=== PATIENT | male | born 1945 | race Caucasian/White ===

== ENCOUNTER 2017-01-12 09:00 | Outpatient (CLI) | payer MEDICARE ==
[2017-01-12] MEDS ORDERED: IOPAMIDOL-300 100 ML VIAL IVP ONE (10:28)
[2017-01-12] MEDS ORDERED: IOPAMIDOL-300 50 ML VIAL PO ONE (10:28)
== END 2017-01-12 09:01 | disposition home or self-care (01) ==
DX: K57.30 Diverticulosis of large intestine without perforation or abscess without bleeding (principal)
CPT/HCPCS: 74177; Q9967

== ENCOUNTER 2017-09-19 10:54 | Outpatient (CLI) | payer MEDICARE ==
--- NOTE | 2017-09-20 15:31 | XRAY Report ---
CHEST, TWO VIEWS: 09/19/2017 HISTORY: Cough. COMPARISON: 08/29/2012 Borderline cardiomegaly is present. Carotid artery calcification noted particularly on the right. Degenerative changes, left greater than right shoulders. Clear lungs. No pleural effusion or pneumothorax. Multilevel degenerative change in the spine. IMPRESSION: BORDERLINE CARDIOMEGALY. CLEAR LUNGS. NO ACUTE FINDINGS. JOB #: [id number] EXT JOB #: [id number] [facility]
== END 2017-09-19 10:55 | disposition home or self-care (01) ==
LOC: DI 10:54
PROVIDERS: ATTEND Nurse Practitioner Family
DX: R05 Cough (principal); I51.7 Cardiomegaly
CPT/HCPCS: 71020

== ENCOUNTER 2019-03-14 10:40 | Day surgery (SDC) | payer MEDICARE ==
[~2019-03-14 10:40] MED LIST: BRIMONIDINE 0.2% OPHTH DROPS 5 ML ONE; BSS/LIDOCAINE/EPINEPHRINE 1 ML SYRINGE ONE; CYCLOPENTOLATE 1% OPHTH DROPS 2 ML ONE; KETOROLAC 0.45% OPHTH DROPS ONE; PHENYLEPHRINE 2.5% OPHTH 2 ML DROPS ONE; PROPARACAINE 0.5% OPHTH DROPS 15 ML ONE; TIMOLOL 0.5% OPHTH DROPS ONE; TRIAMCIN/MOXIFLOX OPHTHALMIC 0.6 ML VIAL IO ONE; VANCOMYCIN OPHTHALMI 8MG/0.8ML 8 MG/0.8 ML SYRINGE IO ONE
[2019-03-14] MEDS ORDERED: LACTATED RINGERS 500 ML IV ONE (11:08)
[2019-03-14] MEDS ORDERED: CYCLOPENTOLATE 1% OPHTH DROPS 2 ML RIGHTEYE ONE (11:15)
[2019-03-14] MEDS ORDERED: KETOROLAC 0.45% OPHTH DROPS RIGHTEYE ONE (11:15)
[2019-03-14] MEDS ORDERED: PHENYLEPHRINE 2.5% OPHTH 2 ML DROPS RIGHTEYE ONE (11:15)
[2019-03-14] MEDS ORDERED: PROPARACAINE 0.5% OPHTH DROPS 15 ML RIGHTEYE ONE (11:15)
--- NOTE | 2019-03-14 11:47 | ANESTHESIA ---
Pre-Anesthesia VS, & Labs - NPO >8 hours <Glenis Rust - Last Filed: 03/14/19 11:42> - NPO >8 hours <Jocelyn Lyons - Last Filed: 03/14/19 11:50> - Diagnosis senile combined cataract right side (Glenis Rust) - Procedure cataract extraction with intraocular lens implant (Glenis Rust) Vital Signs: Temp Pulse Resp BP Pulse Ox 36.7 C 52 L 18 142/79 H 93 03/14/19 11:11 03/14/19 11:11 03/14/19 11:11 03/14/19 11:11 03/14/19 11:11 Height 5 ft 8 in Weight (kg) 101 kg Body Mass Index 33.0 Home Medications and Allergies <Glenis Rust - Last Filed: 03/14/19 11:42> <Jocelyn Lyons - Last Filed: 03/14/19 11:50> Losartan/Hydrochlorothiazide [Hyzaar 50-12.5 Tablet] 1 each PO DAILY 03/21/13 Omeprazole 20 mg PO BID 03/21/13 Cyanocobalamin/Folic Acid [Vitamin T23-Rvjmn Acid Tablet] 1 tab ORAL DAILY 07/09/14 Multivitamin [Multi-Day Vitamins] 1 tab ORAL DAILY 07/09/14 Allergies/Adverse Reactions: Allergies Allergy/AdvReac Type Severity Reaction Status Date / Time Penicillins Allergy Mild Hives Verified 03/21/13 13:18 Anes History & Medical History - Medical History Cardiovascular: reports: Hypertension, High cholesterol Pulmonary: reports: Shortness of breath, Other Gastrointestinal: reports: GERD, Ulcerative colitis, Other Urinary: reports: None Musculoskeletal: reports: Osteoarthritis, Chronic back pain, Other Endocrine/Autoimmune: reports: None Skin: reports: None - Surgical History General: Bowel surgery, Colonoscopy <Glenis Rust - Last Filed: 03/14/19 11:42> - Anesthetic History Anesthesia Complications: reports: No previous complications - Medical History Cardiovascular: reports: Hypertension, High cholesterol Pulmonary: reports: Shortness of breath, Other Gastrointestinal: reports: GERD Neuro: reports: None Blood Disorders: reports: None Smoking Status: Current every day smoker (1pk/day for 50 years) Psychosocial: reports: No issues indicated <Jocelyn Lyons - Last Filed: 03/14/19 11:50> Exam General: Alert, Oriented x3, Cooperative, No acute distress Dental: Partials Upper, Partials Lower Mouth Openin Fingerbreadth Neck Mobility: Normal Mallampati classification: II Thyromental Distance: 4-6 cm Respiratory: Lungs clear, Normal breath sounds, No respiratory distress, No accessory muscle use Cardiovascular: Regular rate, Normal S1, Normal S2, No murmurs Mental/Cognitive Status: Alert/Oriented X3, Normal for patient <Jocelyn Lyons - Last Filed: 03/14/19 11:50> Plan Anesthesia Type: MAC Consent for Procedure(s) Verified and Reviewed: Yes Code Status: Attempt Resuscitation ASA classification: 2-Mild systemic disease Is this case an emergency?: No <Jocelyn Lyons - Last Filed: 03/14/19 11:50>
[2019-03-14] MEDS ORDERED: MIDAZOLAM 2 MG/2 ML VIAL IVP ONE (12:03)
[2019-03-14] MEDS ORDERED: fentaNYL 100 MCG/2 ML VIAL IVP ONE (12:03)
[2019-03-14] MEDS ORDERED: BRIMONIDINE 0.2% OPHTH DROPS 5 ML OPTH ONE (12:07)
[2019-03-14] MEDS ORDERED: TRIAMCIN/MOXIFLOX OPHTHALMIC 0.6 ML VIAL IO ONE (12:08)
[2019-03-14] MEDS ORDERED: CHONDR SULF/HYALURONATE SYRINGE IO ONE (12:08)
[2019-03-14] MEDS ORDERED: EPINEPHrine 1 MG/ML AMP IVP ONE (12:08)
[2019-03-14] MEDS ORDERED: TIMOLOL 0.5% OPHTH DROPS OPTH ONE (12:08)
[2019-03-14] MEDS ORDERED: BSS/LIDOCAINE/EPINEPHRINE 1 ML SYRINGE IO ONE (12:08)
[2019-03-14] MEDS ORDERED: VANCOMYCIN OPHTHALMI 8MG/0.8ML 8 MG/0.8 ML SYRINGE IO ONE (12:09)
[2019-03-14 12:32] VITALS: BP 129/60
--- NOTE | 2019-03-14 13:11 | OPERATIVE REPORT ---
DATE OF SERVICE: 03/14/2019 Physician: Fuad Sanders MD PREOPERATIVE DIAGNOSIS: Complex visually significant cataract, right eye,complex due to small pupil requiring pupil expansion with Malyugin ring. This was his first cataract surgery. POSTOPERATIVE DIAGNOSIS: Complex visually significant cataract, right eye complex due to small pupil requiring pupil expansion with Malyugin ring. This was his first cataract surgery. PROCEDURE: Phacoemulsification with posterior chamber intraocular lens implant, right eye. SURGEON: Fuad Sanders MD ANESTHESIA: Monitored anesthesia care. COMPLICATIONS: None. OPERATIVE INDICATIONS: This is a 73-year-old man with progressive vision loss in the right eye due t o 4+ nuclear sclerotic and 2+ cortical cataract. Best corrected visual acuity was 20/80, with glare to 20/500 in the right eye. Indications for surgery were overall decrease in vision, difficulty seei ng words on the computer screen, difficulty reading, difficulty seeing street signs, difficulty drivi ng in low light or at night and difficulty driving at night because of headlights from other vehicles . He was consented at length concerning the risks and benefits of cataract surgery, after which he e xpressed a desire to proceed with surgery. OPERATIVE PROCEDURE: The patient was taken into OR #3 and placed under monitored anesthesia care. A surgical timeout was conducted confirming correct patient, correct procedure, and correct surgical s ite. He was given topical anesthesia, and prepped and draped in the usual sterile fashion. The eye was entered at the 12 and 9 o'clock positions. Intracameral Shugarcaine was injected into the anteri or chamber, followed by Viscoat. A 7 mm Malyugin ring was then injected into the anterior chamber, a nd engaged the pupil at 4 points to expand the pupil. A continuous-tear curvilinear capsulorrhexis w as then performed. The nucleus was hydrodissected and phacoemulsified. The cortex was evacuated usi ng automated infusion and aspiration. Provisc was injected in the capsular bag, and a 22.5 diopter i ntraocular lens inserted in the bag. Approximately 0.8 mL of a mixture of triamcinolone, moxifloxaci n and vancomycin was injected subconjunctivally in the superior quadrant for infection and inflammati on prophylaxis. The Malyugin ring was then disengaged from the iris and removed from the anterior ch sadiq. I and A was used to evacuate This lasted materials. The eye was inflated to physiologic pres sure using balanced salt solution and found to be watertight. The patient was taken from the operati ng room in good condition and given postoperative instructions. TD: 03/14/2019 12:20
== END 2019-03-14 10:41 | disposition home or self-care (01) ==
LOC: SDS 10:40
PROVIDERS: ATTEND Ophthalmology
PROC: 08RJ3JZ Replacement of Right Lens with Synthetic Substitute, Percutaneous Approach (ICD-10-PCS; principal; 2019-03-14 12:00)
DX: H25.811 Combined forms of age-related cataract, right eye (principal); I10 Essential (primary) hypertension; E78.00 Pure hypercholesterolemia, unspecified; K21.9 Gastro-esophageal reflux disease without esophagitis; K51.90 Ulcerative colitis, unspecified, without complications; G89.29 Other chronic pain; M54.9 Dorsalgia, unspecified; M19.90 Unspecified osteoarthritis, unspecified site; F17.210 Nicotine dependence, cigarettes, uncomplicated; Z79.82 Long term (current) use of aspirin
CPT/HCPCS: 66982; A9270; J3490; V2632

== ENCOUNTER 2019-04-26 11:47 | Outpatient (CLI) | payer MEDICARE ==
[2019-04-26 18:46] LABS: BASOPHILS # (AUTO) 0.1 10^3/uL (0.0-0.1); BASOPHILS % (AUTO) 0.8 %; EOSINOPHILS # (AUTO) 0.4 10^3/uL (0.0-0.7); HGB - HEMOGLOBIN 14.5 g/dL (14.0-18.0); LYMPHOCYTES # (AUTO) 1.7 10^3/uL (1.5-3.5); LYMPHOCYTES % (AUTO) 18.6 %; MEAN CORPUSCULAR HEMOGLOBIN 31.8 pg (27.0-31.0); MEAN CORPUSCULAR HGB CONC 31.8 g/dL (32.0-36.0); MEAN PLATELET VOLUME 11.1 fL (7.4-11.4); MONOCYTES # (AUTO) 0.9 10^3/uL (0.0-1.0); MONOCYTES % (AUTO) 10.3 %; NEUTROPHILS # (AUTO) 5.8 10^3/uL (1.5-6.6); NEUTROPHILS % (AUTO) 65.8 %; PLT - PLATELET COUNT 228 10^3/uL (130-450); RED BLOOD COUNT 4.56 10^6/uL (4.70-6.10); RED CELL DISTRIBUTION WIDTH 14.5 % (12.0-15.0); WHITE BLOOD COUNT 8.9 x10^3/uL (4.8-10.8)
[2019-04-26 19:00] LABS: ALBUMIN/GLOBULIN RATIO 1.4 (1.0-2.2); BILIRUBIN,TOTAL 0.5 mg/dL (0.2-1.0); CALCIUM 9.3 mg/dL (8.5-10.3); CREATININE 0.9 mg/dL (0.6-1.2); TOTAL PROTEIN 6.8 g/dL (6.7-8.2)
== END 2019-04-26 23:59 | disposition home or self-care (01) ==
LOC: LAB.WCP 11:47
PROVIDERS: ATTEND Family Medicine
DX: C18.4 Malignant neoplasm of transverse colon (principal); K51.90 Ulcerative colitis, unspecified, without complications
CPT/HCPCS: 36415; 80053; 82378; 84443; 85025

== ENCOUNTER 2020-05-15 14:41 | Outpatient (CLI) | payer MEDICARE | END 2020-05-15 14:42 | disposition home or self-care (01) | LOC: COV 14:41 | PROVIDERS: ATTEND Ophthalmology | DX: Z01.812 Encounter for preprocedural laboratory examination (principal); H25.12 Age-related nuclear cataract, left eye; Z11.59 Encounter for screening for other viral diseases ==

== ENCOUNTER 2020-05-21 08:29 | Day surgery (SDC) | payer MEDICARE ==
[~2020-05-21 08:29] MED LIST changes: -BRIMONIDINE 0.2% OPHTH DROPS 5 ML ONE; -BSS/LIDOCAINE/EPINEPHRINE 1 ML SYRINGE ONE; -TIMOLOL 0.5% OPHTH DROPS ONE; -TRIAMCIN/MOXIFLOX OPHTHALMIC 0.6 ML VIAL IO ONE; -VANCOMYCIN OPHTHALMI 8MG/0.8ML 8 MG/0.8 ML SYRINGE IO ONE
[2020-05-21] MEDS ORDERED: MIDAZOLAM 2 MG/2 ML VIAL IVP ONE (08:30)
[2020-05-21] MEDS ORDERED: LACTATED RINGERS 500 ML IV ONE (09:26)
[2020-05-21] MEDS ORDERED: EPINEPHrine 1 MG/ML AMP ONE (10:00)
[2020-05-21] MEDS ORDERED: TRIAMCIN/MOXIFLOX OPHTHALMIC 0.6 ML VIAL IO ONE ×2 (10:00→10:45)
[2020-05-21] MEDS ORDERED: BRIMONIDINE 0.2% OPHTH DROPS 5 ML ONE (10:01)
[2020-05-21] MEDS ORDERED: TIMOLOL 0.5% OPHTH DROPS ONE (10:01)
[2020-05-21] MEDS ORDERED: BACITRACIN 50,000 UNIT VIAL ONE (10:01)
--- NOTE | 2020-05-21 10:03 | ANESTHESIA ---
Pre-Anesthesia VS, & Labs - Diagnosis left eye senile combined cataract - Procedure left eye cataract extraction with IOL Vital Signs: Temp Pulse Resp BP Pulse Ox 36.8 C 88 18 161/84 H 93 05/21/20 09:06 05/21/20 09:06 05/21/20 09:06 05/21/20 09:06 05/21/20 09:06 Height 5 ft 8 in Weight (kg) 104.5 kg Body Mass Index 33.0 - NPO >8 hours Home Medications and Allergies Losartan/Hydrochlorothiazide [Hyzaar 50-12.5 Tablet] 1 each PO DAILY 03/21/13 Omeprazole 2 mg PO BID 03/21/13 Cyanocobalamin/Folic Acid [Vitamin Y20-Fyngb Acid Tablet] 1 tab ORAL DAILY 07/09/14 Multivitamin [Multi-Day Vitamins] 1 tab ORAL DAILY 07/09/14 Allergies/Adverse Reactions: Allergies Allergy/AdvReac Type Severity Reaction Status Date / Time Penicillins Allergy Mild Hives Verified 03/21/13 13:18 Anes History & Medical History - Anesthetic History Anesthesia Complications: reports: No previous complications - Medical History Cardiovascular: reports: Hypertension Pulmonary: reports: Pneumonia, Shortness of breath, Other Gastrointestinal: reports: GERD Urinary: reports: Frequency Neuro: reports: None Musculoskeletal: reports: Osteoarthritis, Chronic back pain, Other Endocrine/Autoimmune: reports: None Blood Disorders: reports: None Skin: reports: None Smoking Status: Current every day smoker (1pk/day for 50 years) Psychosocial: reports: No issues indicated - Surgical History General: Bowel surgery, Colonoscopy Eyes Ears Nose Throat (EENT): Cataracts Exam General: Alert, Oriented x3, Cooperative, No acute distress Dental: WNL Mouth Openin Fingerbreadth Neck Mobility: Normal Mallampati classification: II Mental/Cognitive Status: Alert/Oriented X3, Normal for patient Plan Anesthesia Type: MAC Consent for Procedure(s) Verified and Reviewed: Yes Code Status: Attempt Resuscitation ASA classification: 3-Severe systemic disease Is this case an emergency?: No
[2020-05-21] MEDS ORDERED: CHONDR SULF/HYALURONATE SYRINGE IO ONE (10:45)
[2020-05-21] MEDS ORDERED: TIMOLOL 0.5% OPHTH DROPS OPTH ONE (10:45)
[2020-05-21] MEDS ORDERED: VANCOMYCIN OPHTHALMI 8MG/0.8ML 8 MG/0.8 ML SYRINGE IO ONE (10:45)
[2020-05-21] MEDS ORDERED: BSS/LIDOCAINE/EPINEPHRINE 1 ML SYRINGE IO ONE (10:45)
[2020-05-21] MEDS ORDERED: BRIMONIDINE 0.2% OPHTH DROPS 5 ML OPTH ONE (10:45)
[2020-05-21] MEDS ORDERED: EPINEPHrine 1 MG/ML AMP IR ONE (10:45)
[2020-05-21] MEDS ORDERED: PROPARACAINE 0.5% OPHTH DROPS 15 ML EACHEYE ONE (10:45)
[2020-05-21] MEDS ORDERED: LACTATED RINGERS 400 ML IV ONE (10:57)
--- NOTE | 2020-05-21 11:05 | ANESTHESIA POST OP EVALUATION ---
Anesthesia Post Eval - Post Anesthesia Eval Vitals: Last Vital Signs Temp 37 C 05/21/20 10:57 Pulse 72 05/21/20 10:57 Resp 18 05/21/20 10:57 BP 145/86 H 05/21/20 10:57 Pulse Ox 99 05/21/20 10:57 CV Function Including HR & BP: positive: Stable Pain Control: positive: Satisfactory Nausea & Vomiting: positive: Negative Mental Status: positive: Baseline Respiratory Status: Airway Patent Hydration Status: Satisfactory Anesthesia Complications: positive: None
[2020-05-21 11:18] VITALS: BP 152/82
--- NOTE | 2020-05-21 12:38 | OPERATIVE REPORT ---
DATE OF SERVICE: 05/21/2020 Physician: Fuad Sanders MD PREOPERATIVE DIAGNOSIS: Complex visually significant cataract, left eye, complex due to poorly dilating pupil requiring Malyugin ring. Cataract surgery was performed on the right eye on 03/14/2020. POSTOPERATIVE DIAGNOSIS: Complex visually significant cataract, left eye, complex due to poorly dilating pupil requiring Malyugin ring. Cataract surgery was performed on the right eye on 03/14/2020. PROCEDURE: Phacoemulsification with posterior chamber intraocular lens implant, left eye. SURGEON: Fuad Sanders MD ANESTHESIA: Monitored anesthesia care. COMPLICATIONS: None. OPERATIVE INDICATIONS: This is a 75-year-old man with progressive vision loss in the left eye due to 4+ nuclear sclerotic cataract. Best corrected visual acuity was 20/30, with glare to hand motion vision in the left eye. Indications for surgery were difficulty reading and difficulty driving at night because of headlights from other vehicles. He was consented at length concerning risks and benefits of cataract surgery, after which he expressed a desire to proceed with surgery. OPERATIVE PROCEDURE: Patient was taken to OR #3 and placed under monitored anesthesia care. A surgical timeout was conducted confirming correct patient, correct procedure, and correct surgical site. He was given topical anesthesia and then prepped and draped in the usual sterile fashion. The eye was entered at the 6 and 3 o'clock positions. Intracameral Shugarcaine was injected into the anterior chamber, followed by Viscoat. A Malyugin ring was injected into the anterior chamber and engaged with the pupil margin at 4 points to dilate the pupil. A continuous-tear curvilinear capsulorrhexis was performed. The nucleus was hydrodissected and phacoemulsified. The cortex was evacuated using automated infusion and aspiration. Provisc was injected in the capsular bag, and a 23.5 diopter intraocular lens was inserted into the bag. The Malyugin ring was then disengaged from the pupillary margin and removed from the anterior chamber. Infusion and aspiration was used to evacuate the viscoelastic materials. The eye was inflated to physiologic pressure using balanced salt solution and found to be watertight. Approximately 0.25 mL of a mixture of triamcinolone and moxifloxacin was injected trans sclerally into the vitreous in the inferotemporal quadrant. An additional 0.55 mL of a mixture of triamcinolone, moxifloxacin and vancomycin was injected subconjunctivally in the superior quadrant for infection and inflammation prophylaxis. Wound integrity was checked with Weck-Thi sponges. Patient was taken from the Operating Room in good condition and given postoperative instructions. TD: 05/21/2020 11:09 KIERAN
== END 2020-05-21 08:30 | disposition home or self-care (01) ==
LOC: SDS 08:29
PROVIDERS: ATTEND Ophthalmology
DX: H25.12 Age-related nuclear cataract, left eye (principal); I10 Essential (primary) hypertension; Z98.41 Cataract extraction status, right eye; F17.210 Nicotine dependence, cigarettes, uncomplicated
CPT/HCPCS: 66984; A9270; J3490; J7120; V2632

== ENCOUNTER 2020-12-03 08:10 | Outpatient (CLI) | payer MEDICARE ==
[2020-12-03 13:09] LABS: BASOPHILS # (AUTO) 0.1 10^3/uL (0.0-0.1); BASOPHILS % (AUTO) 1.1 %; EOSINOPHILS # (AUTO) 0.5 10^3/uL (0.0-0.7); HGB - HEMOGLOBIN 15.1 g/dL (14.0-18.0); LYMPHOCYTES # (AUTO) 2.3 10^3/uL (1.5-3.5); LYMPHOCYTES % (AUTO) 27.5 %; MEAN CORPUSCULAR HEMOGLOBIN 30.8 pg (27.0-31.0); MEAN CORPUSCULAR HGB CONC 30.9 g/dL (32.0-36.0); MEAN CORPUSCULAR VOLUME 99.8 fL (80.0-94.0); MEAN PLATELET VOLUME 11.3 fL (7.4-11.4); MONOCYTES # (AUTO) 0.8 10^3/uL (0.0-1.0); NEUTROPHILS # (AUTO) 4.6 10^3/uL (1.5-6.6); NEUTROPHILS % (AUTO) 55.3 %; PLT - PLATELET COUNT 221 10^3/uL (130-450); RED CELL DISTRIBUTION WIDTH 14.1 % (12.0-15.0); WHITE BLOOD COUNT 8.3 x10^3/uL (4.8-10.8)
[2020-12-03 13:56] LABS: ALBUMIN 4.3 g/dL (3.2-5.5); ALBUMIN/GLOBULIN RATIO 1.9 (1.0-2.2); ALKALINE PHOSPHATASE 71 IU/L (42-121); ALT ALANINE AMINOTRANSFERASE 19 IU/L (10-60); AST ASPARTATE AMINOTRANSFERASE 23 IU/L (10-42); BILIRUBIN,TOTAL 1.1 mg/dL (0.2-1.0); BUN - BLOOD UREA NITROGEN 22 mg/dL (6-20); CALCIUM 9.5 mg/dL (8.5-10.3); CARBON DIOXIDE - CO2 30 mmol/L (21-32); CHLORIDE 98 mmol/L (101-111); CHOL/HDL RATIO 5.2 (<5.0); CHOLESTEROL 203 mg/dL; CREATININE 1.1 mg/dL (0.6-1.2); GLUCOSE 100 mg/dL (70-100); HDL CHOLESTEROL 39 mg/dL; LDL CHOLESTEROL,CALCULATED 138 mg/dL; LDL/HDL RATIO 3.5 (<3.6); TOTAL PROTEIN 6.6 g/dL (6.7-8.2); VLDL CHOLESTEROL 26 mg/dL
[2020-12-03 14:44] LABS: HEMOGLOBIN A1c% 6.1 % (4.27-6.07)
== END 2020-12-03 23:59 | disposition home or self-care (01) ==
LOC: LAB.WCP 08:10
PROVIDERS: ATTEND Internal Medicine
DX: I10 Essential (primary) hypertension (principal); C18.9 Malignant neoplasm of colon, unspecified; R73.01 Impaired fasting glucose
CPT/HCPCS: 36415; 80053; 80061; 82378; 83036; 83721; 84443; 85025

== ENCOUNTER 2021-09-27 11:00 | Outpatient (CLI) | payer MEDICARE ==
--- NOTE | 2021-09-27 17:37 | XRAY Report ---
PROCEDURE: Knee 4 View BILAT INDICATIONS: OSTEOARTHRITIS , BILATERAL KNEES TECHNIQUE: 40 04/22/2020 were acquired. COMPARISON: None. FINDINGS: Bones: No fractures or dislocations. There is diffuse osteopenia bilaterally. Right knee: There is tricompartmental osteophytosis. There is moderate to severe joint space narrowin g in the lateral compartment with subchondral sclerosis. There is moderate lateral shift of the mercado la with severe narrowing in the lateral patellofemoral compartment with subchondral sclerosis. Left knee: There is tricompartmental osteophytosis. There is moderate to severe narrowing in the late ral compartment with subchondral sclerosis. There is mild lateral shift of the patella with severe na rrowing in the lateral patellofemoral compartment with subchondral sclerosis. Soft tissues: There are small bilateral joint effusions. There is chondrocalcinosis bilaterally. IMPRESSION: 1. Bilateral compartmental osteoarthritic changes including severe narrowing in the lateral patellofe moral compartments bilaterally. There is also moderate to severe narrowing in the lateral compartment s. 2. Bilateral small joint effusions. 3. 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 Reviewed by: Lamine Kingsley MD on 09/27/2021 5:36 PM PST Approved by: Lamine Kingsley MD on 09/27/2021 5:36 PM PST Station ID: [id number]
== END 2021-09-27 23:59 | disposition home or self-care (01) ==
LOC: DI.N 11:00
PROVIDERS: ATTEND Physician Assistant
DX: M17.0 Bilateral primary osteoarthritis of knee (principal); M25.462 Effusion, left knee; M25.461 Effusion, right knee; M11.262 Other chondrocalcinosis, left knee; M11.261 Other chondrocalcinosis, right knee

== ENCOUNTER 2022-01-25 10:57 | Outpatient (CLI) | payer MEDICARE ==
[2022-01-25 18:06] LABS: BASOPHILS # (AUTO) 0.1 10^3/uL (0.0-0.1); EOSINOPHILS # (AUTO) 0.4 10^3/uL (0.0-0.7); EOSINOPHILS % (AUTO) 4.7 %; HCT - HEMATOCRIT 48.7 % (42.0-52.0); HGB - HEMOGLOBIN 15.4 g/dL (14.0-18.0); LYMPHOCYTES # (AUTO) 1.6 10^3/uL (1.5-3.5); LYMPHOCYTES % (AUTO) 17.5 %; MEAN CORPUSCULAR HGB CONC 31.6 g/dL (32.0-36.0); MEAN CORPUSCULAR VOLUME 98.2 fL (80.0-94.0); MEAN PLATELET VOLUME 11.4 fL (7.4-11.4); MONOCYTES # (AUTO) 0.8 10^3/uL (0.0-1.0); MONOCYTES % (AUTO) 8.5 %; NEUTROPHILS # (AUTO) 6.1 10^3/uL (1.5-6.6); PLT - PLATELET COUNT 261 10^3/uL (130-450); RED BLOOD COUNT 4.96 10^6/uL (4.70-6.10); RED CELL DISTRIBUTION WIDTH 13.7 % (12.0-15.0)
[2022-01-25 18:22] LABS: CREATININE,URINE 167.9 mg/dL; MICROALBUM/CREATININE RATIO,UR 165.6 ug/mg (<30.0); MICROALBUMIN,URINE 27.8 mg/dL (0-300.0)
[2022-01-25 18:30] LABS: ALBUMIN 4.3 g/dL (3.2-5.5); ALBUMIN/GLOBULIN RATIO 1.5 (1.0-2.2); ALKALINE PHOSPHATASE 66 IU/L (42-121); ALT ALANINE AMINOTRANSFERASE 19 IU/L (10-60); AST ASPARTATE AMINOTRANSFERASE 23 IU/L (10-42); BILIRUBIN,TOTAL 1.2 mg/dL (0.2-1.0); BUN - BLOOD UREA NITROGEN 26 mg/dL (6-20); CALCIUM 9.2 mg/dL (8.5-10.3); CARBON DIOXIDE - CO2 29 mmol/L (21-32); CHLORIDE 100 mmol/L (101-111); CHOL/HDL RATIO 5.2 (<5.0); CHOLESTEROL 199 mg/dL; CREATININE 1.1 mg/dL (0.6-1.2); GFR - MDRD 65 (>89); GLUCOSE 121 mg/dL (70-100); HDL CHOLESTEROL 38 mg/dL; LDL CHOLESTEROL,CALCULATED 138 mg/dL; LDL/HDL RATIO 3.6 (<3.6); POTASSIUM 3.8 mmol/L (3.5-5.0); SODIUM 140 mmol/L (135-145); TOTAL PROTEIN 7.2 g/dL (6.7-8.2); TRIGLYCERIDES 115 mg/dL; VLDL CHOLESTEROL 23 mg/dL
[2022-01-25 20:14] LABS: ESTIMATED AVERAGE GLUCOSE 140 mg/dL (70-100); HEMOGLOBIN A1c% 6.5 % (4.27-6.07)
== END 2022-01-25 10:58 | disposition home or self-care (01) ==
LOC: LAB.N 10:57
PROVIDERS: ATTEND Internal Medicine
DX: E78.5 Hyperlipidemia, unspecified (principal); R73.01 Impaired fasting glucose; K51.90 Ulcerative colitis, unspecified, without complications; C18.4 Malignant neoplasm of transverse colon
CPT/HCPCS: 36415; 80053; 80061; 82043; 82378; 82570; 83036; 83721; 85025

== ENCOUNTER 2022-01-25 11:05 | Outpatient (CLI) | payer MEDICARE ==
--- NOTE | 2022-01-25 15:42 | XRAY Report ---
PROCEDURE: Chest 2 View X-Ray INDICATIONS: L SHOULDER MASS TECHNIQUE: 2 view(s) of the chest. COMPARISON: Chest x-ray 2 view, 09/19/2017. FINDINGS: Surgical changes and devices: None. Lungs and pleura: No pleural effusions or pneumothorax. Lungs are clear. Mediastinum: Mediastinal contours are normal. Heart size is mildly increased. Bones and chest wall: No suspicious bony abnormalities. Soft tissues appear unremarkable. Degenera tive changes noted in thoracic and upper lumbar spine. IMPRESSION: 1. No acute cardiopulmonary disease. 2. Mild cardiomegaly. Reviewed by: Leonidas Barrios MD on 01/25/2022 3:40 PM PDT Approved by: Leonidas Barrios MD on 01/25/2022 3:40 PM PDT Station ID: [id number]
--- NOTE | 2022-01-25 17:24 | XRAY Report ---
PROCEDURE: Shoulder 3 View LT INDICATIONS: L SHOULDER MASS TECHNIQUE: 3 views of the shoulder were acquired. COMPARISON: None FINDINGS: Bones: No fractures or dislocations. No suspicious bony lesions. Visualized ribs appear intact. C hronic rotator cuff tear with obliteration of the space between the humeral head and the acromion. Se suzanne glenohumeral joint degenerative change. Soft tissues: No suspicious soft tissue calcifications. IMPRESSION: Severe glenohumeral joint degenerative change, chronic rotator cuff tear. Reviewed by: Gonzalo Garcia MD on 01/25/2022 5:22 PM PDT Approved by: Gonzalo Garcia MD on 01/25/2022 5:22 PM PDT Station ID: [id number]
== END 2022-01-25 11:06 | disposition home or self-care (01) ==
LOC: DI.N 11:05
PROVIDERS: ATTEND Internal Medicine
DX: M25.812 Other specified joint disorders, left shoulder (principal); I51.7 Cardiomegaly; M19.012 Primary osteoarthritis, left shoulder; M75.102 Unspecified rotator cuff tear or rupture of left shoulder, not specified as traumatic; E78.5 Hyperlipidemia, unspecified; R73.01 Impaired fasting glucose; K51.90 Ulcerative colitis, unspecified, without complications; C18.4 Malignant neoplasm of transverse colon
CPT/HCPCS: 36415; 80053; 80061; 82043; 82378; 82570; 83036; 83721; 85025

== ENCOUNTER 2022-02-01 11:12 | Outpatient (CLI) | payer MEDICARE ==
[2022-02-01] MEDS ORDERED: IOVERSOL 320 100 ML VIAL IVP ONE ×2 (11:52→14:00)
--- NOTE | 2022-02-01 16:39 | CT Report ---
PROCEDURE: UPPER EXTREMITY W - LT INDICATIONS: MASS OF LEFT SHOULDER JOINT TECHNIQUE: Noncontrast 3 mm thick sections acquired from the acromioclavicular joint to the inferior scapula, wi th coronal and sagittal reformatting. COMPARISON: None. FINDINGS: BONES: No acute, displaced fracture. Near complete narrowing of the acromiohumeral interval, compati ble with long-standing rotator cuff tear. Advanced arthrosis of the acromioclavicular and glenohumera l joints with fibrocystic change, joint space loss, osteophytosis. Fragmented appearance of the acrom ion, which may reflect os acromiale versus prior traumatic injury. SOFT TISSUES: A 2.5 x 3.3 x 2.5 cm lesion arises from the superior aspect of the AC joint, which may reflect bursitis. Calcific densities about the glenohumeral articulation, which may reflect crystal d eposition. No appreciable pneumothorax. IMPRESSION: 1.Advanced arthrosis of the shoulder as detailed above. 2.Lesion arising from the superior aspect of the AC joint as detailed above, which may reflect bursit is. Ultrasound the helpful for further evaluation. Reviewed by: Chris Dykes MD on 02/01/2022 4:38 PM PDT Approved by: Chris Dykes MD on 02/01/2022 4:38 PM PDT Station ID: [id number]
== END 2022-02-01 11:13 | disposition home or self-care (01) ==
LOC: DI 11:12
PROVIDERS: ATTEND Internal Medicine
DX: M19.012 Primary osteoarthritis, left shoulder (principal); R93.6 Abnormal findings on diagnostic imaging of limbs; R93.89 Abnormal findings on diagnostic imaging of other specified body structures
CPT/HCPCS: 73201; Q9967

== ENCOUNTER 2022-09-23 13:56 | Outpatient (CLI) | payer MEDICARE ==
[2022-09-23 18:04] LABS: BASOPHILS # (AUTO) 0.1 10^3/uL (0.0-0.1); EOSINOPHILS # (AUTO) 0.5 10^3/uL (0.0-0.7); EOSINOPHILS % (AUTO) 4.9 %; HCT - HEMATOCRIT 46.1 % (42.0-52.0); HGB - HEMOGLOBIN 14.3 g/dL (14.0-18.0); LYMPHOCYTES # (AUTO) 1.9 10^3/uL (1.5-3.5); LYMPHOCYTES % (AUTO) 20.4 %; MEAN CORPUSCULAR HEMOGLOBIN 30.6 pg (27.0-31.0); MEAN CORPUSCULAR VOLUME 98.7 fL (80.0-94.0); MEAN PLATELET VOLUME 11.2 fL (7.4-11.4); MONOCYTES # (AUTO) 1.1 10^3/uL (0.0-1.0); MONOCYTES % (AUTO) 11.9 %; NEUTROPHILS # (AUTO) 5.8 10^3/uL (1.5-6.6); NEUTROPHILS % (AUTO) 61.6 %; PLT - PLATELET COUNT 261 10^3/uL (130-450); RED BLOOD COUNT 4.67 10^6/uL (4.70-6.10); RED CELL DISTRIBUTION WIDTH 13.6 % (12.0-15.0); WHITE BLOOD COUNT 9.4 x10^3/uL (4.8-10.8)
[2022-09-23 18:39] LABS: ALBUMIN 4.4 g/dL (3.2-5.5); ALBUMIN/GLOBULIN RATIO 1.6 (1.0-2.2); ALKALINE PHOSPHATASE 70 IU/L (42-121); ALT ALANINE AMINOTRANSFERASE 18 IU/L (10-60); AST ASPARTATE AMINOTRANSFERASE 21 IU/L (10-42); BILIRUBIN,TOTAL 0.6 mg/dL (0.2-1.0); BUN - BLOOD UREA NITROGEN 19 mg/dL (6-20); CALCIUM 9.3 mg/dL (8.5-10.3); CARBON DIOXIDE - CO2 31 mmol/L (21-32); CHLORIDE 97 mmol/L (101-111); CHOL/HDL RATIO 4.9 (<5.0); CHOLESTEROL 196 mg/dL; CREATININE 1.1 mg/dL (0.6-1.2); GFR - MDRD 65 (>89); GLUCOSE 106 mg/dL (70-100); HDL CHOLESTEROL 40 mg/dL; LDL CHOLESTEROL,CALCULATED 134 mg/dL; LDL/HDL RATIO 3.4 (<3.6); POTASSIUM 3.9 mmol/L (3.5-5.0); SODIUM 139 mmol/L (135-145); TOTAL PROTEIN 7.1 g/dL (6.7-8.2); TRIGLYCERIDES 112 mg/dL; VLDL CHOLESTEROL 22 mg/dL
[2022-09-23 21:06] LABS: ESTIMATED AVERAGE GLUCOSE 137 mg/dL (70-100); HEMOGLOBIN A1c% 6.4 % (4.27-6.07)
== END 2022-09-23 13:57 | disposition home or self-care (01) ==
LOC: LAB.N 13:56
PROVIDERS: ATTEND Internal Medicine
DX: I10 Essential (primary) hypertension (principal); E78.5 Hyperlipidemia, unspecified; R73.03 Prediabetes
CPT/HCPCS: 36415; 80053; 80061; 83036; 83721; 85025

== ENCOUNTER 2023-01-29 18:14 | Outpatient (CLI) | payer MEDICARE | END 2023-01-29 18:15 | disposition critical access hospital (66) | LOC: EMS 18:14 | DX: I46.9 Cardiac arrest, cause unspecified (principal) | CPT/HCPCS: A0425; A0433 ==

== ENCOUNTER 2023-01-29 18:30 | Emergency (ER) | payer MEDICARE ==
--- NOTE | 2023-01-29 18:45 | ED Physician Documentation ---
History of Present Illness - Stated complaint Stated Complaint: CARDIAC ARREST - History obtained from History obtained from: EMS - Additonal information Additional information: Patient comes emergency department via EMS for chief complaint of cardiac arrest. The patient apparently approximately 1-1/2 hours ago was on the phone with a neighbor when he seemed to collapse. The neighbor was not exactly sure what it happened but the patient stopped talking and he heard him fall. The neighbor called EMS who arrived approximately an hour and 20 minutes ago at the patient's house and found the patient pulseless and without spontaneous res pirations on the floor. He was initially found to be in asystole but then progressed to PEA, then ventricular fibrillation for which she received 3 shocks and for since then he has been in PEA. The patient has received a total of 13 doses of epinephrine magnesium, 2 doses of bicarbonate, and has had no response to any of them. The medics did call medical control to try to get permission to cease resuscitation efforts and were told that because the patient has an "organized rhythm," despite the fact that it has been over an hour of resuscitation attempts, that they should transport the patient to the emergency department. The patient has not been conscious at any point in the time that has elapsed and has not had a pulse at any time. Obviously as such, he is unable to offer any information. PD PAST MEDICAL HISTORY - Allergies Allergies/Adverse Reactions: Allergies Allergy/AdvReac Type Severity Reaction Status Date / Time Unable to Assess Allergy Verified 01/29/23 18:48 PD ED PE NORMAL - General General: Other (Unresponsive patient with no signs of life. Deep cyanosis of head, with mottling and livedo reticularis noted dependently.) - HEENT HEENT: Atraumatic, Other (Pupils are fixed and unreactive) - Cardiac Cardiac: Other (No heart tones or pulses) - Respiratory Respiratory: Other (No spontaneous respiratory effort; Rales with good air movement bilaterally with bagging; endotracheal tube in place with frothy, blood-tinged material in tube) - Abdomen Abdomen: Other (Distended) - Derm Derm: Other (Pallor generally with dependent mottling and lividity) - Extremities Extremities: Other (Diffuse edema throughout patient's entire body) - Neuro Neuro: Other (No signs of neurologic activity whatsoever) PD Medical Decision Making - ED course Complexity details: considered differential ED course: The patient arrived after an extensive period of resuscitation attempts, all of which had been unsuccessful. The patient had received 13 doses of epinephrine as well as other ACLS medications and while he did continue to have PEA, had failed to regain a pulse/spontaneous circulation after well over an hour of resuscitative attempts. Furthermore, he was displaying lividity. It was not clear to me exactly why the patient the medics had been directed to bring the patient to the emergency department for further evaluation, as it was clear that this patient was not responding and was already developing other findings consistent with . I did suspend CPR once the patient was moved to our stretcher and we did check for pulses at both carotids and both femorals. No pulses were palpable despite multiple staff members checking. I did personally check both carotid arteries. The patient had no spontaneous respiratory effort and while he did have some electrical cardiac activity, I suspected that this was due to the Most recent epinephrine dose and at this point, I did not feel that there was any possibility of return to spontaneous circulation. As such, I did pronounce the patient at 1836. Medics reported the patient does not have any next of kin that they know of, so attempts will be made to track down any family if there is any. - Critical Care Time(min): 30 Comments: Critical care time was necessary, secondary to high probability of , secondary to cardiac arrest. Time Includes: Direct patient care, Review records, Reassess patient, Document care, Coordinate care, See progress note Data interpretation: Cardiac output Departure - Departure Disposition: 20 Condition: Critical
== END 2023-01-29 18:36 | disposition expired ==
LOC: EDBD → ED 18:30 → MERGE 18:30 → ED 18:36
DX: I46.9 Cardiac arrest, cause unspecified (principal)
CPT/HCPCS: 99285